=== PATIENT | female | born 1985 | race Caucasian/White ===

== ENCOUNTER 2016-07-08 13:26 | Inpatient (IN) | payer OTHER ==
[~2016-07-08] VITALS: Ht 152.4 cm; Wt 71.9 kg
[~2016-07-08 13:26] MED LIST: NOHOMEMEDS
[2016-07-08 13:49] LABS: HEMATOCRIT 27.9 % (36.0-46.0); MCH 23.4 PG (29.0-34.0); MCHC 29.4 G/DL (30.0-36.0); MCV 79.5 FL (83-99); MEAN PLAT.VOLUME 9.7 uM^3 (9.5-12.4); PLATELET COUNT 170 K/uL (156-360); RBC DIS.WIDTH-CV 18.4 % (11.8-14.6); RBC DIS.WIDTH-SD 50.4 % (39-53); RED BLOOD COUNT 3.51 M/uL (3.80-5.20); WHITE BLOOD COUNT 5.8 K/uL (4.1-10.2)
[2016-07-08 13:50] LABS: EOSINOPHIL (%) 0.3 % (0-5); IMMATURE GRANULOCYTE (%) 1.7 % (0.0-0.7); LYMPHOCYTE COUNT 0.8 K/uL (1.0-2.8); MONOCYTE (%) 6.6 % (3-12); MONOCYTE COUNT 0.4 K/uL (0-0.8); NEUTROPHIL (%) 76.8 % (45-76); NEUTROPHIL COUNT 4.4 K/uL (1.8-6.4)
[2016-07-08 13:59] LABS: AMYLASE 84 IU/L (1-118); CHLORIDE 110 mEq/L (99-109); POTASSIUM 4.1 mEq/L (3.7-5.4); SODIUM 140 mEq/L (136-147)
[2016-07-08 14:01] LABS: GLUCOSE 96 mg/dL (70-99)
[2016-07-08 14:03] LABS: ANION GAP 9 MEQ/L (2-14)
[2016-07-08 14:04] LABS: SERUM ETHYL ALCOHOL < 10 mg/dL
[2016-07-08 14:05] LABS: GFR ESTIMATE (CALCULATED) > 59 mL/min/
[2016-07-08 14:06] LABS: UREA NITROGEN (BUN) 8 mg/dL (9-23)
[2016-07-08 14:08] LABS: LIPASE 60 U/L (1.0-51.0)
[2016-07-08 14:14] LABS: QUANTITATIVE HCG < 4.0 MIU/ML
[2016-07-08 15:22] LABS: ADD MIUA? YES; BILIRUBIN NEGATIVE; BLOOD NEGATIVE; COLOR YELLOW ((YELLOW)); GLUCOSE (STRIP) NEGATIVE; KETONES NEGATIVE; LEUKOCYTES TRACE; NITRITE NEGATIVE; PROTEIN (STRIP) NEGATIVE; SPECIFIC GRAVITY 1.031 (1.000-1.030); UROBILINOGEN 0.2 MG/DL (0.2-1.0)
[2016-07-08 15:58] LABS: AMPHETAMINE NEGATIVE (500 ng/mL); BACTERIA NONE SEEN /HPF; BARBITURATES NEGATIVE (200 ng/mL); BENZODIAZEPINES PRESUMPTIVE POSITIVE (150 ng/mL); COCAINE NEGATIVE (150 ng/mL); EPITHELIAL CELLS 3+ /HPF; INTERNAL CONTROLS VALID? YES; METHADONE NEGATIVE (200 ng/mL); METHAMPHETAMINE PRESUMPTIVE POSITIVE (500 ng/mL); MUCUS TRACE /LPF; OPIATES (MORPHINE) PRESUMPTIVE POSITIVE (100 ng/mL); OXYCODONE NEGATIVE (100 ng/mL); PHENCYCLIDINE NEGATIVE (25 ng/mL); PROPOXYPHENE NEGATIVE (300 ng/mL); RED BLOOD CELLS 15-20 /HPF (0-5); THC CANNABINOIDS PRESUMPTIVE POSITIVE (50 ng/mL); TRICYCLIC ANTIDEPRESSANTS NEGATIVE (300 ng/mL); UCUL ADDED? NO; WHITE BLOOD CELLS 0-5 /HPF (0-5)
[2016-07-08 15:59] LABS: ADD MEDTOX COMMENT Y
[2016-07-08 17:31] LABS: BENZODIAZEPINES, URINE SCREEN POSITIVE (200 ng/mL)
[2016-07-08 22:03] VITALS: BP 123/77
[2016-07-08 23:31] VITALS: BP 114/70
[2016-07-09] VITALS (12 sets, daily range): BP systolic 106–126; BP diastolic 57–73
[2016-07-09 08:12] LABS: HEMATOCRIT 22.2 % (36.0-46.0); MCV 78.4 FL (83-99)
[2016-07-09 20:41] LABS: HEMATOCRIT 26.6 % (36.0-46.0); MCV 80.1 FL (83-99)
[2016-07-10 00:20] VITALS: BP 110/64
[2016-07-10 05:42] LABS: HEMATOCRIT 26.5 % (36.0-46.0); MCH 24.6 PG (29.0-34.0); MCHC 30.6 G/DL (30.0-36.0); MCV 80.5 FL (83-99); MEAN PLAT.VOLUME 10.4 uM^3 (9.5-12.4); PLATELET COUNT 146 K/uL (156-360); RBC DIS.WIDTH-CV 17.7 % (11.8-14.6); RBC DIS.WIDTH-SD 52.1 % (39-53); RED BLOOD COUNT 3.29 M/uL (3.80-5.20); WHITE BLOOD COUNT 6.3 K/uL (4.1-10.2)
[2016-07-10 06:12] LABS: EOSINOPHIL (%) 0.5 % (0-5); IMMATURE GRANULOCYTE (%) 0.2 % (0.0-0.7); LYMPHOCYTE COUNT 1.4 K/uL (1.0-2.8); MONOCYTE (%) 11.3 % (3-12); MONOCYTE COUNT 0.7 K/uL (0-0.8); NEUTROPHIL (%) 65.4 % (45-76); NEUTROPHIL COUNT 4.1 K/uL (1.8-6.4)
[2016-07-10 07:40] VITALS: BP 120/69
[2016-07-10 16:40] VITALS: BP 111/65
[2016-07-10 20:51] VITALS: BP 111/69
[2016-07-10 23:52] VITALS: BP 104/69
[2016-07-11 03:35] VITALS: BP 101/60
[2016-07-11 06:14] LABS: MCV 81.7 FL (83-99)
[2016-07-11 07:35] VITALS: BP 108/59
[2016-07-11 08:02] VITALS: BP 135/82
[2016-07-11 15:47] VITALS: BP 108/63
[2016-07-11 19:39] VITALS: BP 111/66
[2016-07-11 23:54] VITALS: BP 91/55
[2016-07-12 04:56] VITALS: BP 100/64
[2016-07-12 07:39] VITALS: BP 98/52
[2016-07-12 07:48] VITALS: BP 118/53
[2016-07-12 11:37] VITALS: BP 103/61
[2016-07-12 16:42] VITALS: BP 113/67
[2016-07-12 20:09] VITALS: BP 120/67
[2016-07-13 00:10] VITALS: BP 119/58
[2016-07-13 08:06] VITALS: BP 110/40
[2016-07-13 16:35] VITALS: BP 111/61
[2016-07-14 00:18] VITALS: BP 114/58
[2016-07-14 08:29] VITALS: BP 115/57
[2016-07-14 11:30] VITALS: BP 106/62
[2016-07-14] MEDS ORDERED: NICOTINE PATCH1 EAC2 TD (14:06)
[2016-07-14] MEDS ORDERED: BACLOFEN10 MG PO (14:06)
[2016-07-14] MEDS ORDERED: LOVENOX40 MG/0.4 SC (14:06)
[2016-07-14] MEDS ORDERED: CLONIDINE HCL0.1 MG PO (14:06)
[2016-07-14] MEDS ORDERED: NALOXONE HC1 MG/1 ML IV ×2 (14:07)
[2016-07-14] MEDS ORDERED: MORPHINE SULFAT15 MG PO (14:07)
[2016-07-14] MEDS ORDERED: METHADONE5 MG PO (14:07)
[2016-07-14] MEDS ORDERED: MAG-AL PLUS SUS30 ML PO (14:08)
[2016-07-14] MEDS ORDERED: HYDROXYZINE PAM50 MG PO (14:08)
[2016-07-14] MEDS ORDERED: GABAPENTIN300 MG PO (14:08)
[2016-07-14] MEDS ORDERED: METOCLOPRAMIDE10 MG PO (14:08)
[2016-07-14] MEDS ORDERED: ONDANSETRON4 MG/2 ML IV (14:08)
== END 2016-07-14 15:02 | DRG 956 ==
LOC: EDBD 13:26 → TRA 13:26 → SDC 16:45 → TRA 16:45 → 2SOUTH 18:56 → 3EAST 18:56
PROVIDERS: Emergency Medicine; Orthopaedic Surgery; Physician Assistant; Surgery
PROC: 0QS806Z Reposition Right Femoral Shaft with Intramedullary Internal Fixation Device, Open Approach (ICD-10-PCS; principal; 2016-07-08)
PROC: 30233N1 Transfusion of Nonautologous Red Blood Cells into Peripheral Vein, Percutaneous Approach (ICD-10-PCS; 2016-07-09)
DX: S72.321A Displaced transverse fracture of shaft of right femur, initial encounter for closed fracture (principal); S32.10XA Unspecified fracture of sacrum, initial encounter for closed fracture; S32.591A Other specified fracture of right pubis, initial encounter for closed fracture; S12.100A Unspecified displaced fracture of second cervical vertebra, initial encounter for closed fracture; S12.000A Unspecified displaced fracture of first cervical vertebra, initial encounter for closed fracture; V47.6XXA Car passenger injured in collision with fixed or stationary object in traffic accident, initial encounter; S81.811A Laceration without foreign body, right lower leg, initial encounter; S00.81XA Abrasion of other part of head, initial encounter; F11.20 Opioid dependence, uncomplicated; D64.9 Anemia, unspecified; F15.10 Other stimulant abuse, uncomplicated; F12.10 Cannabis abuse, uncomplicated; F17.210 Nicotine dependence, cigarettes, uncomplicated
CPT/HCPCS: 70450; 70498; 71260; 72125; 72129; 72132; 73552; 73590; 74177; 76000; 80048; 81003; 82150; 83690; 84702; 84999; 85014; 85018; 85025; 86850; 86900; 86901; 86920; 99281; 99285; C1713; G0480; J0131; J0690; J1100; J1170; J1650; J1885; J2060; J2270; J2405; J3010; J7120; P9016; Q0177

== ENCOUNTER 2016-07-14 13:20 | Inpatient (IN) | payer OTHER ==
[~2016-07-14] VITALS: Ht 177.8 cm; Wt 65.0 kg
[2016-07-14] MEDS ORDERED: BACLOFEN10 MG PO (14:06)
[2016-07-14] MEDS ORDERED: LOVENOX40 MG/0.4 SC (14:06)
[2016-07-14] MEDS ORDERED: CLONIDINE HCL0.1 MG PO (14:06)
[2016-07-14] MEDS ORDERED: NICOTINE PATCH1 EAC2 TD (14:06)
[2016-07-14] MEDS ORDERED: NALOXONE HC1 MG/1 ML IV ×2 (14:07)
[2016-07-14] MEDS ORDERED: MORPHINE SULFAT15 MG PO (14:07)
[2016-07-14] MEDS ORDERED: METHADONE5 MG PO (14:07)
[2016-07-14] MEDS ORDERED: MAG-AL PLUS SUS30 ML PO (14:08)
[2016-07-14] MEDS ORDERED: GABAPENTIN300 MG PO (14:08)
[2016-07-14] MEDS ORDERED: ONDANSETRON4 MG/2 ML IV (14:08)
[2016-07-14] MEDS ORDERED: METOCLOPRAMIDE10 MG PO (14:08)
[2016-07-14] MEDS ORDERED: HYDROXYZINE PAM50 MG PO (14:08)
[2016-07-14 15:33] VITALS: BP 124/77
[2016-07-14 17:10] LABS: HEMATOCRIT 27.9 % (36.0-46.0); MCH 25.4 PG (29.0-34.0); MCHC 29.7 G/DL (30.0-36.0); MCV 85.3 FL (83-99); RBC DIS.WIDTH-CV 19.8 % (11.8-14.6); RBC DIS.WIDTH-SD 60.1 % (39-53); RED BLOOD COUNT 3.27 M/uL (3.80-5.20); WHITE BLOOD COUNT 5.9 K/uL (4.1-10.2)
[2016-07-14 17:15] LABS: MEAN PLAT.VOLUME 9.5 uM^3 (9.5-12.4); PLATELET COUNT 195 K/uL (156-360)
[2016-07-14 17:34] LABS: ALKALINE PHOSPHATASE 65 IU/L (3-129); ANION GAP 5 MEQ/L (2-14); CHLORIDE 101 MEQ/L (99-109); GFR ESTIMATE (CALCULATED) > 59 mL/min/; GLUCOSE 95 mg/dL (70-99); POTASSIUM 4.2 MEQ/L (3.7-5.4); SAMPLE HEMOLYSIS CHECK 0; SAMPLE ICTERIC CHECK 0; SAMPLE LIPEMIA CHECK 0; SODIUM 135 MEQ/L (136-147); TOTAL BILIRUBIN 0.5 MG/DL (0.0-1.0); UREA NITROGEN (BUN) 10 mg/dL (9-23)
[2016-07-14 23:11] VITALS: BP 105/53
[2016-07-15 05:29] VITALS: BP 106/57
[2016-07-15 14:59] VITALS: BP 109/57
[2016-07-15 20:00] VITALS: BP 108/66
[2016-07-16 04:44] VITALS: BP 123/73
[2016-07-16 15:41] VITALS: BP 98/59
[2016-07-16 22:00] VITALS: BP 104/57
[2016-07-17 05:20] VITALS: BP 109/68
[2016-07-17 15:11] VITALS: BP 120/57
[2016-07-18 04:57] VITALS: BP 110/62
[2016-07-18 15:51] VITALS: BP 110/63
[2016-07-18 21:07] VITALS: BP 115/66
[2016-07-19 05:37] VITALS: BP 101/55
[2016-07-19 15:02] VITALS: BP 101/52
[2016-07-19 20:22] VITALS: BP 113/56
[2016-07-20 04:58] VITALS: BP 96/55
[2016-07-20 07:34] VITALS: BP 94/54
[2016-07-20 15:33] VITALS: BP 102/59
[2016-07-20 15:37] VITALS: BP 98/55
[2016-07-21 05:51] VITALS: BP 97/54
[2016-07-21 07:33] VITALS: BP 115/57
[2016-07-21 14:57] VITALS: BP 106/54
[2016-07-22 05:49] VITALS: BP 118/81
[2016-07-22 09:45] VITALS: BP 107/63
[2016-07-22 15:35] VITALS: BP 112/60
[2016-07-23 05:35] VITALS: BP 100/55
[2016-07-23 15:00] VITALS: BP 119/70
[2016-07-23 16:46] VITALS: BP 104/68
[2016-07-24 05:49] VITALS: BP 105/65
[2016-07-24 15:48] VITALS: BP 118/66
[2016-07-25 05:34] VITALS: BP 96/58
[2016-07-25] MEDS ORDERED: LOVENOX40 MG/0.4 SC (13:12)
[2016-07-25 16:30] VITALS: BP 107/58
[2016-07-26 05:13] VITALS: BP 101/59
[2016-07-26 15:16] VITALS: BP 119/55
[2016-07-26] MEDS ORDERED: DOLOPHINE HCL10 MG PO (16:00)
[2016-07-26] MEDS ORDERED: BACLOFEN10 MG PO (16:03)
[2016-07-26] MEDS ORDERED: GABAPENTIN300 MG PO (16:07)
[2016-07-26 16:55] LABS: HEMATOCRIT 30.3 % (36.0-46.0); MCH 24.6 PG (29.0-34.0); MCV 84.6 FL (83-99); MEAN PLAT.VOLUME 9.4 uM^3 (9.5-12.4); PLATELET COUNT 252 K/uL (156-360); RBC DIS.WIDTH-CV 20.2 % (11.8-14.6); RBC DIS.WIDTH-SD 63.1 % (39-53); RED BLOOD COUNT 3.58 M/uL (3.80-5.20); WHITE BLOOD COUNT 4.1 K/uL (4.1-10.2)
[2016-07-26 17:14] LABS: ALKALINE PHOSPHATASE 130 IU/L (3-129); ANION GAP 8 MEQ/L (2-14); CHLORIDE 102 MEQ/L (99-109); GFR ESTIMATE (CALCULATED) > 59 mL/min/; GLUCOSE 109 mg/dL (70-99); POTASSIUM 3.9 MEQ/L (3.7-5.4); SAMPLE HEMOLYSIS CHECK 0; SAMPLE ICTERIC CHECK 0; SAMPLE LIPEMIA CHECK 0; SODIUM 138 MEQ/L (136-147); TOTAL BILIRUBIN 0.3 MG/DL (0.0-1.0); UREA NITROGEN (BUN) 13 mg/dL (9-23)
[2016-07-26] MEDS ORDERED: SENNA PLUS TAB1 EACH PO (20:19)
[2016-07-26] MEDS ORDERED: CLONIDINE HCL0.1 MG PO (20:19)
[2016-07-26] MEDS ORDERED: LORATADINE10 M2 PO (20:19)
[2016-07-26] MEDS ORDERED: NICOTINE PATCH1 EAC2 TD (20:19)
[2016-07-26] MEDS ORDERED: POLYETHYLENE GL17 GM PO (20:19)
[2016-07-26 22:00] VITALS: BP 102/62
[2016-07-27 06:15] VITALS: BP 102/60
== END 2016-07-27 14:11 | DRG 560 ==
LOC: 3WEST 13:20
PROVIDERS: Physical Medicine & Rehabilitation Pain Medicine; Psychiatry & Neurology Neurology
PROC: F07M0ZZ Range of Motion and Joint Mobility Treatment of Musculoskeletal System - Whole Body (ICD-10-PCS; principal; 2016-07-14)
PROC: 0HDKXZZ Extraction of Right Lower Leg Skin, External Approach (ICD-10-PCS; 2016-07-24)
DX: S72.301D Unspecified fracture of shaft of right femur, subsequent encounter for closed fracture with routine healing (principal); S32.10XD Unspecified fracture of sacrum, subsequent encounter for fracture with routine healing; S32.591D Other specified fracture of right pubis, subsequent encounter for fracture with routine healing; S12.100D Unspecified displaced fracture of second cervical vertebra, subsequent encounter for fracture with routine healing; S12.000D Unspecified displaced fracture of first cervical vertebra, subsequent encounter for fracture with routine healing; V47.6XXD Car passenger injured in collision with fixed or stationary object in traffic accident, subsequent encounter; M41.9 Scoliosis, unspecified; R26.2 Difficulty in walking, not elsewhere classified; K59.00 Constipation, unspecified; L97.819 Non-pressure chronic ulcer of other part of right lower leg with unspecified severity; D62 Acute posthemorrhagic anemia; F11.20 Opioid dependence, uncomplicated
CPT/HCPCS: 80053; 85027; 92610 GN; 93971; 97110 GO; 97530 GP; J1650

== ENCOUNTER 2016-08-02 11:24 | Emergency (ER) | payer OTHER ==
[~2016-08-02] VITALS: Ht 177.8 cm; Wt 69.2 kg
[~2016-08-02 11:24] MED LIST changes: +BACLOFEN10 MG PO; +CLONIDINE HCL0.1 MG PO; +DOLOPHINE HCL10 MG PO; +GABAPENTIN300 MG PO; +HYDROXYZINE PAM50 MG PO; +LORATADINE10 M2 PO; +LOVENOX40 MG/0.4 SC; +MAG-AL PLUS SUS30 ML PO; +METHADONE5 MG PO; +METOCLOPRAMIDE10 MG PO; +MORPHINE SULFAT15 MG PO; +NALOXONE HC1 MG/1 ML IV; +NICOTINE PATCH1 EAC2 TD; +ONDANSETRON4 MG/2 ML IV; +POLYETHYLENE GL17 GM PO; +SENNA PLUS TAB1 EACH PO
[2016-08-02] MEDS ORDERED: FLONASE16 G1 BOTH NARES (13:58)
[2016-08-02 16:05] VITALS: BP 96/56
== END 2016-08-02 16:05 | disposition home or self-care (01) ==
LOC: EME 11:24
DX: R60.0 Localized edema (principal); M25.561 Pain in right knee; F17.200 Nicotine dependence, unspecified, uncomplicated
CPT/HCPCS: 73552; 73564; 80048; 85027; 93971; 99281; 99283

== ENCOUNTER 2016-12-14 02:46 | Emergency (ER) | payer OTHER ==
[~2016-12-14] VITALS: Ht 177.8 cm; Wt 55.6 kg
[~2016-12-14 02:46] MED LIST changes: +FLONASE16 G1 BOTH NARES
[2016-12-14 03:52] LABS: ADD MIUA? YES; BILIRUBIN NEGATIVE; BLOOD NEGATIVE; COLOR YELLOW ((YELLOW)); GLUCOSE (STRIP) NEGATIVE; KETONES NEGATIVE; LEUKOCYTES NEGATIVE; NITRITE NEGATIVE; PROTEIN (STRIP) 100; SPECIFIC GRAVITY 1.029 (1.000-1.030); UROBILINOGEN 0.2 MG/DL (0.2-1.0)
[2016-12-14 03:54] LABS: INTERNAL CONTROL VALID? YES
[2016-12-14 03:56] LABS: HEMATOCRIT 33.7 % (36.0-46.0); MCH 27.2 PG (29.0-34.0); MCHC 30.6 G/DL (30.0-36.0); MCV 89.2 FL (83-99); MEAN PLAT.VOLUME 10.1 uM^3 (9.5-12.4); PLATELET COUNT 199 K/uL (156-360); RBC DIS.WIDTH-CV 17.4 % (11.8-14.6); RBC DIS.WIDTH-SD 57.1 % (39-53); RED BLOOD COUNT 3.78 M/uL (3.80-5.20); WHITE BLOOD COUNT 5.5 K/uL (4.1-10.2)
[2016-12-14 04:00] LABS: BACTERIA RARE /HPF; CALCIUM OXALATE CRYSTALS 4+ /HPF; EPITHELIAL CELLS RARE /HPF; MUCUS 1+ /LPF; UCUL ADDED? NO; WHITE BLOOD CELLS 0-5 /HPF (0-5)
[2016-12-14 04:05] LABS: AMPHETAMINE PRESUMPTIVE POSITIVE (500 ng/mL); BARBITURATES NEGATIVE (200 ng/mL); BENZODIAZEPINES NEGATIVE (150 ng/mL); COCAINE NEGATIVE (150 ng/mL); INTERNAL CONTROLS VALID? YES; METHADONE NEGATIVE (200 ng/mL); METHAMPHETAMINE PRESUMPTIVE POSITIVE (500 ng/mL); OPIATES (MORPHINE) PRESUMPTIVE POSITIVE (100 ng/mL); OXYCODONE NEGATIVE (100 ng/mL); PHENCYCLIDINE NEGATIVE (25 ng/mL); PROPOXYPHENE NEGATIVE (300 ng/mL); THC CANNABINOIDS PRESUMPTIVE POSITIVE (50 ng/mL); TRICYCLIC ANTIDEPRESSANTS NEGATIVE (300 ng/mL)
[2016-12-14 04:06] LABS: ADD MEDTOX COMMENT Y
[2016-12-14 04:10] LABS: CHLORIDE 105 mEq/L (99-109); POTASSIUM 3.5 mEq/L (3.7-5.4); SODIUM 140 mEq/L (136-147)
[2016-12-14 04:12] LABS: GLUCOSE 88 mg/dL (70-99)
[2016-12-14 04:13] LABS: ANION GAP 10 MEQ/L (2-14)
[2016-12-14 04:14] LABS: TOTAL BILIRUBIN 0.4 mg/dL (0.0-1.0)
[2016-12-14 04:16] LABS: ALKALINE PHOSPHATASE 72 IU/L (3-129); GFR ESTIMATE (CALCULATED) > 59 mL/min/
[2016-12-14 04:17] LABS: UREA NITROGEN (BUN) 19 mg/dL (9-23)
[2016-12-14 04:23] VITALS: BP 119/81
== END 2016-12-14 04:37 | disposition home or self-care (01) ==
LOC: EME 02:46
PROVIDERS: Emergency Medicine
DX: F32.9 Major depressive disorder, single episode, unspecified (principal); R45.851 Suicidal ideations; F11.20 Opioid dependence, uncomplicated; F17.200 Nicotine dependence, unspecified, uncomplicated
CPT/HCPCS: 80053; 81003; 84703; 84999; 85027; 90839; 99281; 99284

== ENCOUNTER 2017-05-29 01:59 | Emergency (ER) | payer OTHER ==
[~2017-05-29] VITALS: Ht 175.3 cm; Wt 62.7 kg
[2017-05-29] MEDS ORDERED: PERCOCET 5/31 TABLET PO (13:04)
[2017-05-29 13:15] VITALS: BP 119/77
== END 2017-05-29 13:26 | disposition home or self-care (01) ==
LOC: EME 01:59
DX: S13.9XXA Sprain of joints and ligaments of unspecified parts of neck, initial encounter (principal); W01.198A Fall on same level from slipping, tripping and stumbling with subsequent striking against other object, initial encounter; F17.200 Nicotine dependence, unspecified, uncomplicated
CPT/HCPCS: 70450; 72040; 72125; 72141; 99281; 99284